=== PATIENT | female | born 1955 | race Caucasian/White ===

== ENCOUNTER → 2018-02-22 11:47 | Outpatient (CLI) | payer OTHER, SELFPAY ==
--- NOTE | 2018-02-22 | DI.MG.S_ITS ---
BILATERAL DIGITAL SCREENING MAMMOGRAM 3D/2D WITH CAD: 02/22/2018 CLINICAL: Routine screening. Family history of breast cancer. Comparison is made to exams dated: 11/07/2016 mammogram - [facility] and 07/31/2013 mammogram - [facility]. There are scattered fibroglandular elements in both breasts. Current study was also evaluated with a Computer Aided Detection (CAD) system. There is a biopsy clip in both breasts. No significant masses, calcifications, or other findings are seen in either breast. There has been no significant interval change. IMPRESSION: NEGATIVE There is no mammographic evidence of malignancy. A 1 year screening mammogram is recommended. This exam was interpreted at Station ID: [id number]. NOTE: For mammograms, a report in lay terms will be sent to the patient. Approximately 15% of breast malignancies will not be visualized mammographically. In the management of a palpable breast mass, a negative mammogram must not discourage biopsy of a clinically suspicious lesion. Electronically Signed By: Milvia [email or web address]:02/22/2018 12:54:00 letter sent: Normal Exam ACR BI-RADS Category 1: Negative 3341F
== END ==
PROVIDERS: Visit Provider Family Medicine
DX: Z12.31 Encounter for screening mammogram for malignant neoplasm of breast (principal); Z80.3 Family history of malignant neoplasm of breast
CPT/HCPCS: 77063; 77067

== ENCOUNTER → 2019-04-08 16:16 | Outpatient (CLI) | payer OTHER, SELFPAY ==
--- NOTE | 2019-04-08 | DI.CT.S_ITS ---
PROCEDURE: CT SINUS SCREEN WO CON INDICATIONS: PERIORBITAL EDEMA OF RIGHT EYE TECHNIQUE: Noncontrast 3.0 mm axial images acquired from the frontal sinuses to the mid-sella, with coronal and sagittal reformats. For radiation dose reduction, the following was used: automated exposure control, adjustment of mA and/or kV according to patient size. COMPARISON: None. FINDINGS: Image quality: Excellent. Destructive lesion involving the anterior wall of the right maxillary antrum as well as the anterior aspect of the zygomatic arch. There is permeative, destructive appearance of the associated bone as well as soft tissue component. Overall this measures approximately 2.2 x 1.9 cm cross-sectional and on axial image 12 series 2 an approximately 1.9 cm in a cephalocaudad dimension. Mild bilateral maxillary sinus disease. There is minimal mucosal thickening within the sphenoid sinuses bilaterally. The frontal sinuses appear clear. Ethmoid air cells grossly unremarkable bilaterally. Ostiomeatal Complexes: Ostiomeatal complexes are patent. No Jamir cells. Miscellaneous: Visualized intra-orbital contents are normal. Left fabricio bullosa is noted. There is rightward deviation of the nasal septum. IMPRESSION: Lytic, destructive bone lesion involving the anterolateral aspect of the right maxillary sinus and right anterior zygomatic arch, most concerning for metastatic disease versus malignancy. Consider further evaluation with whole-body bone scan to assess for additional bone lesions. Recommend surgical consultation and management. Mild bilateral maxillary and sphenoid sinus disease. Dictated by: Kishan Wolf M.D. on 04/08/2019 at 17:02 Approved by: Kishan Wolf M.D. on 04/08/2019 at 17:12
== END ==
PROVIDERS: PCP Nurse Practitioner Family; Visit Provider Nurse Practitioner Family
DX: H05.221 Edema of right orbit (principal); M89.8X8 Other specified disorders of bone, other site; J32.8 Other chronic sinusitis
CPT/HCPCS: 70486